=== PATIENT | female | born 1970 | race Caucasian/White ===

== ENCOUNTER 2017-11-13 15:13 | Emergency (ER) | payer OTHER ==
--- NOTE | 2017-11-13 16:12 | RAD ---
Indication: Right foot swelling since Saturday with. Technique: 3 views of the right foot Comparison: None Findings: There is a minimally displaced fracture through the proximal metaphysis of the fifth metatarsal. Soft tissue swelling noted of the ankle. No evidence of arthritic process. Impression: Fracture of the proximal metaphysis of the fifth metatarsal, age indeterminate. Clinically correlate with focal tenderness.
--- NOTE | 2017-11-13 16:26 | PHYS DOC ---
Past History Past Medical History: Anemia, Anxiety, Diabetes, Hypertension, Hypothyroid, Other Past Surgical History: Other Alcohol Use: None Drug Use: None Adult General Chief Complaint Chief Complaint: LOWER EXTREMITY EDEMA HPI HPI Patient is a 47 year old female who presents with complaint of swelling to the right foot and lower extremity. Patient states her symptoms started 3-4 days ago per patient states that she had noticed intermittent pain to her right calf but states that she did not have any associated swelling until earlier this weekend. The patient states that the swelling has fluctuated but became worse the last 1-2 days. Patient denies any associated fever, lymphangitic streaking, or crepitus to the affected lower extremity. The patient has history of type 2 diabetes mellitus and states that it is poorly controlled as her last HbA1c was 9.0. Patient denies any prolonged immobilization or recent travel. The patient also denies any associated chest pain or shortness of breath. Patient is concerned that she may have a blood clot in the affected lower extremity and came to the emergency department for evaluation. Review of Systems Review of Systems Constitutional: Denies fever or chills [] Eyes: Denies change in visual acuity, redness, or eye pain [] HENT: Denies nasal congestion or sore throat [] Respiratory: Denies cough or shortness of breath [] Cardiovascular: Denies chest pain or edema[] GI: Denies abdominal pain, nausea, vomiting, bloody stools or diarrhea [] : Denies dysuria or hematuria [] Musculoskeletal: Right lower extremity pain and swelling[] Integument: Denies rash or skin lesions [] Neurologic: Denies headache, focal weakness or sensory changes [] All other systems were reviewed and found to be within normal limits, except as documented in this note. Allergies Allergies Allergies Coded Allergies Type Severity Reaction Last Updated Verified Penicillins Allergy Unknown 08/12/15 No Sulfa (Sulfonamide Antibiotics) Allergy Unknown 08/12/15 No Physical Exam Physical Exam Constitutional: Alert, afebrile, no acute distress. [] HENT: Normocephalic, atraumatic, bilateral external ears normal, oropharynx moist, no oral exudates, nose normal. [] Eyes: PERRLA, EOMI, conjunctiva normal, no discharge. [] Neck: Normal range of motion, no tenderness, supple, no stridor. [] Cardiovascular:Heart rate regular rhythm, no murmur [] Lungs & Thorax: Bilateral breath sounds clear to auscultation [] Abdomen: Bowel sounds normal, soft, no tenderness, no masses, no pulsatile masses. [] Skin: Warm, dry, no erythema, no rash. [] Back: No tenderness, no CVA tenderness. [] Extremities: Moderate soft tissue swelling involving the right foot and right lower leg, mild erythema present along the medial aspect of the left ankle, no lymphangitic streaking, negative Homans sign, normal range of motion and right ankle and right knee, 2+ pitting edema in the right lower extremity. [] Neurologic: Alert and oriented X 3, normal motor function, normal sensory function, no focal deficits noted. [] Current Patient Data Vital Signs Vital Signs Date Time Temp Pulse Resp B/P (MAP) Pulse Ox O2 Delivery O2 Flow Rate FiO2 11/13/17 15:15 98.0 87 18 100 Room Air Lab Results Laboratory Tests Test 11/13/17 15:41 Glucose (Fingerstick) 553 mg/dL (70-99) *H EKG EKG Not performed[] Radiology/Procedures Radiology/Procedures [address] [address] IMAGING REPORT Signed PATIENT: JELENA JEAN ACCOUNT: [id number] : 1970 LOCATION: ER AGE: 47 SEX: F EXAM STATUS: REG ER ORD. PHYSICIAN: ANNABEL CONNORS MD REASON: right foot swelling PROCEDURE: FOOT RIGHT 3V Indication: Right foot swelling since Saturday with. Technique: 3 views of the right foot Comparison: None Findings: There is a minimally displaced fracture through the proximal metaphysis of the fifth metatarsal. Soft tissue swelling noted of the ankle. No evidence of arthritic process. Impression: Fracture of the proximal metaphysis of the fifth metatarsal, age indeterminate. Clinically correlate with focal tenderness. DICTATED AND SIGNED BY: PROMISE MAYEN DO DATE: 11/13/17 1606 CC: SUKHI FAGAN; ANNABEL CONNORS MD ~ [address] [address] IMAGING REPORT Signed PATIENT: JELENA JEAN ACCOUNT: [id number] : 1970 LOCATION: ER AGE: 47 SEX: F EXAM STATUS: REG ER ORD. PHYSICIAN: ANNABEL CONNORS MD REASON: right lower extremity swelling, rule out DVT PROCEDURE: VENOUS LOWER EXTREMITY RIGHT Indication: Leg swelling Technique: Grayscale, color Doppler and spectral waveform images of the right lower extremity deep veins obtained. Comparison: None Findings: The interrogated lower extremity deep veins are compressible and demonstrate evidence of blood flow with normal respiratory variation and response to augmentation. Impression: No sonographic evidence of acute DVT of the interrogated lower extremity deep veins. DICTATED AND SIGNED BY: PROMISE MAYEN DO DATE: 11/13/17 1627 CC: SUKHI FAGAN; ANNABEL CONNORS MD ~ [] Course & Med Decision Making Course & Med Decision Making Pertinent Labs and Imaging studies reviewed. (See chart for details) The patient's x-ray shows evidence of a right proximal fifth metatarsal fracture , however the patient's exam shows no focal tenderness at this site. This appears to be a chronic fracture as patient does not remember any recent injury that may have caused this. Ultrasound was negative for deep venous thrombosis. Patient's swelling may be due to Charcot joint given the patient's uncontrolled diabetes mellitus versus possible early cellulitis. The patient's vital signs are stable and patient is in no acute distress. The patient's exam does not appear consistent with cellulitis at this time. Patient's blood sugar was addressed by giving 10 units of insulin aspart subcutaneous and patient was advised to continue her oral medication for diabetes mellitus. Also advised patient to check her blood sugar before dinner and before bedtime tonight. I recommended that the patient follow-up with her primary doctor in the next 1-2 days to have her right lower extremity reevaluated for any significant changes. Recommended ice and elevation to help reduce swelling. Recommended return to the emergency department for any worsening symptoms. Patient voiced understanding and was in agreement with treatment plan. Dragon Disclaimer Dragon Disclaimer This electronic medical record was generated, in whole or in part, using a voice recognition dictation system. Departure Departure: Impression: Primary Impression: Edema of right lower extremity Additional Impressions: Fracture of fifth metatarsal bone of right foot Uncontrolled diabetes mellitus Disposition: 01 HOME, SELF-CARE Referrals: SUKHI FAGAN (PCP) Patient Instructions: Edema, Foot Fracture Additional Instructions: Your foot x-ray shows evidence of a fracture to the right fifth metatarsal bone. Your exam shows no tenderness at this site, thus this is likely to be a chronic finding. It is recommended that you follow-up with your orthopedic surgeon for reevaluation. The swelling and your right lower extremity does not appear to be due to active infection though this will need to be watched closely over the next 1-2 days. It is recommended that she follow-up with your primary doctor during that time for reevaluation. These return to the emergency department for any worsening symptoms. Problem Qualifiers Additional Impressions: Fracture of fifth metatarsal bone of right foot Encounter type: initial encounter Fracture type: closed Fracture alignment : displaced Qualified Codes: S92.351A - Displaced fracture of fifth metatarsal bone, right foot, initial encounter for closed fracture Uncontrolled diabetes mellitus Diabetes mellitus type: type 2 Diabetes mellitus complication status: with hyperglycemia Diabetes mellitus intermediate insulin use: without intermediate use Qualified Codes: E11.65 - Type 2 diabetes mellitus with hyperglycemia ANNABEL CONNORS MD Nov 13, 2017 16:25
--- NOTE | 2017-11-13 16:30 | RAD ---
Indication: Leg swelling Technique: Grayscale, color Doppler and spectral waveform images of the right lower extremity deep veins obtained. Comparison: None Findings: The interrogated lower extremity deep veins are compressible and demonstrate evidence of blood flow with normal respiratory variation and response to augmentation. Impression: No sonographic evidence of acute DVT of the interrogated lower extremity deep veins.
[2017-11-13] MEDS ORDERED: INSULIN ASPART 300 UNITS/3 ML INSULN.PEN SQ ONE (17:00)
[2017-11-13 17:10] VITALS: BP 156/80
== END 2017-11-13 17:10 | disposition home or self-care (01) ==
LOC: ER 15:13
DX: S92.351A Displaced fracture of fifth metatarsal bone, right foot, initial encounter for closed fracture (principal); R60.9 Edema, unspecified; E11.65 Type 2 diabetes mellitus with hyperglycemia; E03.9 Hypothyroidism, unspecified; I10 Essential (primary) hypertension; F41.9 Anxiety disorder, unspecified; Z86.2 Personal history of diseases of the blood and blood-forming organs and certain disorders involving the immune mechanism; Z88.0 Allergy status to penicillin; Z88.2 Allergy status to sulfonamides; X58.XXXA Exposure to other specified factors, initial encounter; Y93.89 Activity, other specified; Y99.8 Other external cause status; Y92.89 Other specified places as the place of occurrence of the external cause
CPT/HCPCS: 73630; 82947; 93971; 96372; 99285; J1815

== ENCOUNTER 2022-02-10 21:51 | Observation (INO) | payer OTHER ==
[~2022-02-10] VITALS: Ht 170.2 cm; Wt 106.7 kg
--- NOTE | 2022-02-10 22:02 | PHYS DOC ---
Past History Past Medical History: Anemia, Anxiety, Diabetes, Hypertension, Hypothyroid, Other Past Surgical History: Other Alcohol Use: None Drug Use: None Adult General HPI HPI Patient is a 51-year-old female with a past medical history of diabetes, hypertension and hyperlipidemia who presents to the emergency department with a chief complaint of hypertension at home. States she is to have her blood pressure control, and her doctor changed her to amlodipine, 10 mg about a year ago. States she has noticed that it has been slowly rising over the last year. Denies any recent travel, traumas, illnesses, fevers, neck pain, chest pain, shortness of breath, abdominal pain, nausea, vomiting, diarrhea. Denies any change in vision, syncope, numbness/weakness/tingling. States he is making urine and stool normally for her. States he is able to sit, stand and walk at baseline Review of Systems Review of Systems Review of systems otherwise unremarkable except noted in HPI Allergies Allergies Allergies Coded Allergies Type Severity Reaction Last Updated Verified Penicillins Allergy Unknown 08/12/15 No Sulfa (Sulfonamide Antibiotics) Allergy Unknown 08/12/15 No Physical Exam Physical Exam Constitutional: Well developed, well nourished, no acute distress, non-toxic appearance. [] HENT: Normocephalic, atraumatic, bilateral external ears normal, oropharynx moist, no oral exudates, nose normal. [] Eyes: conjunctiva normal, no discharge. [] Neck: Normal range of motion, no tenderness, supple, no stridor. [] Cardiovascular:Heart rate regular rhythm, no murmur [] Lungs & Thorax: Bilateral breath sounds clear to auscultation [] Abdomen: soft, no tenderness, no masses, no pulsatile masses. [] Skin: Warm, dry, no erythema, no rash. [] Extremities: No tenderness, no cyanosis, no clubbing, ROM intact, no edema. [] Neurologic: Alert and oriented X 3, able to sit, stand and walk without issue, no focal deficits noted. [] Psychologic: Affect normal, judgement normal, mood normal. [] EKG EKG [] Radiology/Procedures Radiology/Procedures [] Heart Score C/O Chest Pain: No Risk Factors: Risk Factors: DM, Current or recent (<one month) smoker, HTN, HLP, family h istory of CAD, obesity. Risk Scores: Risk Factors: DM, Current or recent (<one month) smoker, HTN, HLP, family history of CAD, obesity. Course & Med Decision Making Course & Med Decision Making Patient is a 51-year-old female presents emergency department with a chief complaint of hypertension Vital signs notable for hypertension. Physical exam noted above. EKG with a rate of 77, QRS of 90, QTc of 466, no STEMI. Mild questionable ST depressions in 2, 3. mildly elevated high-sensitivity troponin. chest x-ray nonconcerning. Laboratory analysis with mildly elevated troponin and SHANNAN with creatinine of 3.4. Given dose of labetalol. Started on mild fluid hydration. Started on as needed labetalol. Given Lipitor. Discussed all findings with Dr. Sadie Hawthorne the retail salesperson who felt safe having patient admitted here to [facility] and he would come in the morning to round on her. Discussed patient with hospitalist who also agreed to plan of admission Discussed all findings with family and recommended admission to [facility] for continued evaluation and treatment and cardiology consult. Family grateful, verbalized understanding and agreed with plan of admission. Dragon Disclaimer Dragon Disclaimer This electronic medical record was generated, in whole or in part, using a voice recognition dictation system. Departure Departure: Impression: Primary Impression: Hypertensive emergency Additional Impressions: Elevated troponin Acute kidney injury Disposition: ADMITTED INPATIENT Admitting Physician: Pavan Hung Condition: STABLE Referrals: SUKHI FAGAN NP (PCP) Problem Qualifiers KELLY DENNEY MD Feb 10, 2022 22:02
--- NOTE | 2022-02-10 22:20 | EKG ---
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
[2022-02-10] MEDS ORDERED: LABETALOL 20 MG/4 ML DISP.SYRIN. IVP ONE (22:30)
[2022-02-10 22:40] LABS: CALCIUM 8.1 mg/dL (8.5-10.1); CREATININE 3.4 mg/dL (0.6-1.0); GFR 14.1; POTASSIUM 3.5 mmol/L (3.5-5.1)
[2022-02-10 23:10] LABS: BASO # 0.1 x10^3/uL (0.0-0.2); BASO % 1 % (0-3); EOS # 0.5 x10^3/uL (0.0-0.7); EOS % 6 % (0-3); HEMATOCRIT 26.1 % (36.0-47.0); HEMOGLOBIN 8.3 g/dL (12.0-15.5); LYMPH # 1.6 x10^3/uL (1.0-4.8); LYMPH % 18 % (24-48); MEAN CORPUSCULAR HEMOGLOBIN 26 pg (25-35); MEAN CORPUSCULAR HGB CONC 32 g/dL (31-37); MEAN CORPUSCULAR VOLUME 82 fL (79-100); MONO # 0.6 x10^3/uL (0.0-1.1); MONO % 6 % (0-9); NEUT # 6.1 x10^3uL (1.8-7.7); NEUT % 69 % (31-73); PLATELET COUNT 303 x10^3/uL (140-400); RED BLOOD COUNT 3.17 x10^6/uL (3.50-5.40); RED CELL DISTRIBUTION WIDTH 15.2 % (11.5-14.5); WHITE BLOOD COUNT 8.9 x10^3/uL (4.0-11.0)
--- NOTE | 2022-02-10 23:13 | RAD ---
Exam: Chest one view INDICATION: Chest pain TECHNIQUE: Frontal view of the chest Comparisons: None FINDINGS: Heart is mildly enlarged. Pulmonary vessels are within normal limits. The lung and pleural spaces are clear. IMPRESSION: No acute pulmonary process. Electronically signed by: Fidel Gil MD (02/10/2022 11:10 PM) JOSE RAFAEL
[2022-02-10] MEDS ORDERED: INSU100I13 SQ (23:14)
[2022-02-10] MEDS ORDERED: LIPITOR80 MG PO (23:14)
[2022-02-10] MEDS ORDERED: BUPR300T3 PO (23:14)
[2022-02-10] MEDS ORDERED: AMLO-187 PO (23:14)
[2022-02-10] MEDS ORDERED: HYDR12.58 PO (23:14)
[2022-02-10] MEDS ORDERED: EMPA10TA3 PO (23:14)
[2022-02-10] MEDS ORDERED: LEVO150T PO (23:14)
[2022-02-10] MEDS ORDERED: IV RINGERS SOLUTION,LACTATED 1,000 ML IV ONE (23:30)
[2022-02-10] MEDS ORDERED: LABETALOL 20 MG/4 ML DISP.SYRIN. IVP PRN (23:30)
[2022-02-10] MEDS ORDERED: ASPIRIN CHEWABLE 81 MG TABLET. PO ONE (23:30)
[2022-02-10 23:50] VITALS: BP 164/78
--- NOTE | 2022-02-10 23:50 | NUR ---
Pt admitted from ER to [facility] room 113 via [place], accompanied by EMS and nursing staff. Pt self ambulated from gurney to bed independently with stand by assist. Pt wears left ortho boot r/t hx left foot fracture with rejection of implanted hardware. Admission assessment completed. Pt had recent change in BP medications r/t SHANNAN, new Rx for Coreg but has not picked up yet. Pt is A&Ox4, pleasant and cooperative. Health history and home medications reviewed with pt. Pt lives at home with family. 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 POC reviewed with pt and understanding verbalized. Pt was given written information regarding hospital policies, unit procedures and contact persons. Valuables were checked and left at bedside. Dr Hung called for admitted orders and home medications.
[2022-02-11 00:11] LABS: BACTERIA,URINE FEW /HPF (0-FEW); CLARITY,URINE CLEAR; COLOR,URINE YELLOW; GLUCOSE,URINE 500 mg/dL (NEG); NITRITE,URINE NEG (NEG); UROBILINOGEN,URINE 0.2 mg/dL (0.2 mg/dL)
[2022-02-11 00:12] LABS: SQUAMOUS EPITHELIAL CELL,UR MOD /LPF
[2022-02-11] MEDS ORDERED: CARV6.253 PO (01:16)
[2022-02-11] MEDS ORDERED: HYDR25TA10 PO (01:16)
[2022-02-11] MEDS ORDERED: INSULIN GLARGINE SYRINGE. SQ SCH (02:00)
--- NOTE | 2022-02-11 04:20 | NUR ---
Interventions and esthetic[facility] and manager [facility] spa charted by SN Tricia were under the direct supervision of this RN.
[2022-02-11 05:00] VITALS: BP 159/84
--- NOTE | 2022-02-11 05:22 | EKG ---
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
[2022-02-11] MEDS ORDERED: LEVOTHYROXINE 150 MCG TABLET PO SCH (06:00)
[2022-02-11 07:40] LABS: BASO # 0.1 x10^3/uL (0.0-0.2); BASO % 1 % (0-3); EOS # 0.3 x10^3/uL (0.0-0.7); EOS % 4 % (0-3); HEMATOCRIT 24.2 % (36.0-47.0); HEMOGLOBIN 7.8 g/dL (12.0-15.5); LYMPH % 14 % (24-48); MEAN CORPUSCULAR HEMOGLOBIN 27 pg (25-35); MEAN CORPUSCULAR HGB CONC 32 g/dL (31-37); MEAN CORPUSCULAR VOLUME 82 fL (79-100); MONO # 0.4 x10^3/uL (0.0-1.1); MONO % 5 % (0-9); NEUT # 5.5 x10^3uL (1.8-7.7); NEUT % 76 % (31-73); PLATELET COUNT 281 x10^3/uL (140-400); RED BLOOD COUNT 2.94 x10^6/uL (3.50-5.40); RED CELL DISTRIBUTION WIDTH 15.1 % (11.5-14.5); WHITE BLOOD COUNT 7.2 x10^3/uL (4.0-11.0)
[2022-02-11 07:59] LABS: CALCIUM 8.4 mg/dL (8.5-10.1); CREATININE 3.3 mg/dL (0.6-1.0); GFR 14.6; POTASSIUM 3.6 mmol/L (3.5-5.1)
[2022-02-11] MEDS ORDERED: CARVEDILOL 6.25 MG TABLET PO SCH (08:00)
[2022-02-11] MEDS ORDERED: ATORVASTATIN CALCIUM 20 MG TABLET PO SCH ×2 (09:00)
[2022-02-11] MEDS ORDERED: EMPAGLIFLOZIN 10 MG TABLET. PO SCH (09:00)
[2022-02-11] MEDS ORDERED: hydroCHLOROthiazide 25 MG TABLET. PO SCH (09:00)
[2022-02-11] MEDS ORDERED: amLODIPine BESYLATE 10 MG TABLET PO SCH (09:00)
[2022-02-11] MEDS ORDERED: buPROPion XL 300 MG TAB.ER.24H. PO SCH (09:00)
[2022-02-11 11:00] VITALS: BP 166/82
--- NOTE | 2022-02-11 13:26 | NUR ---
Nursing note PT in bed, family at bed side. Assessments done, medications administered per doctors orders. PT verbalized she will like to go home because she has an appoinment the next day. PT was told by RN when she is seen by the doctor he will decide what to do. Bed low, call light within reach. PT verbalized no other needs.
--- NOTE | 2022-02-11 14:04 | PDOC2 ---
CONSULT DOS: DATE: 02/11/22 TIME: 14:04 Reason for Consult: Elevated troponin level Referring Physician: Dr. Hung Chief Complaint Uncontrolled blood pressure Source: Chart review, Patient Problem List Problems Medical Problems: (1) Acute kidney injury Status: Acute (2) Elevated troponin Status: Acute (3) Hypertension Status: Acute (4) Hypertensive emergency Status: Acute History of Present Illness 51-year-old female without any previous cardiac history apparently had medication changes recently secondary to renal insufficiency. Her blood pressure started going up after that and when she contacted PCP, she was prescribed carvedilol but she could not get that till Saturday. Since her blood pressure when checked at home was significantly elevated, she presented to ED. She had mild headache but denied any blurred vision, chest pain, dyspnea or syncope. Her troponin level was slightly elevated prompting cardiology consultation. Past Medical History Hypertension Hypothyroidism Diabetes mellitus type 2 Anxiety Anemia Past Surgical History: No pertinent history Family History Negative for premature coronary artery disease Social History Patient denied any smoking, alcohol or drug use. 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 [employer] Current Medications Current Medications Labetalol HCl (Normodyne) 20 mg 1X ONCE IVP Last administered on 02/10/22at 22:24; Start 02/10/22 at 22:30; Stop 02/10/22 at 22:31; Status DC Lactated Ringer's 1,000 ml @ 1,000 mls/hr 1X ONCE IV Last administered on 02/10/22at 23:08; Start 02/10/22 at 23:30; Stop 02/11/22 at 00:29; Status DC Aspirin (Aspirin Chewable) 324 mg 1X ONCE PO Last administered on 02/10/22at 23:07; Start 02/10/22 at 23:30; Stop 02/10/22 at 23:31; Status DC Labetalol HCl (Normodyne) 20 mg PRN Q2HRS PRN IVP ELEVATED BP, SEE COMMENTS; Start 02/10/22 at 23:30 Atorvastatin Calcium (Lipitor) 20 mg DAILY PO ; Start 02/11/22 at 09:00; Status Cancel Amlodipine Besylate (Norvasc) 10 mg DAILY PO Last administered on 02/11/22at 08:45; Start 02/11/22 at 09:00 Bupropion HCl (Wellbutrin Xl) 300 mg DAILY PO Last administered on 4/10/22at 08:44; Start 02/11/22 at 09:00 Carvedilol (Coreg) 6.25 mg BIDWMEALS PO Last administered on 02/11/22 08:45; Start 02/11/22 at 08:00 Empaglifozin (Jardiance) 10 mg DAILY PO Last administered on 02/11/22 08:46; Start 02/11/22 at 09:00 Hydrochlorothiazide (Hydrodiuril) 25 mg DAILY PO Last administered on 02/11/22 08:47; Start 02/11/22 at 09:00 Levothyroxine Sodium (Synthroid) 150 mcg DAILY06 PO Last administered on 02/11/22 05:07; Start 02/11/22 at 06:00 Atorvastatin Calcium (Lipitor) 80 mg DAILY PO Last administered on 02/11/22 08:45; Start 02/11/22 at 09:00 Insulin Glargine (Lantus Syringe) 48 unit QHS SQ Last administered on 02/11/22at 01:39; Start 02/11/22 at 02:00 Active Scripts Active Reported Hydrochlorothiazide 25 Mg Tablet 25 Mg PO DAILY LAST DOSE GIVEN: DATE: TIME: NEXT DOSE DUE: DATE: TIME: Carvedilol 6.25 Mg Tablet 6.25 Mg PO BID LAST DOSE GIVEN: DATE: TIME: NEXT DOSE DUE: DATE: TIME: Lantus Solostar (Insulin Glargine,Hum.rec.anlog) 100 Unit/1 Ml Insuln.pen 48 Unit SQ QHS Wellbutrin Xl (Bupropion Hcl) 300 Mg Tab.er.24h 1 Tab PO DAILY Lipitor (Atorvastatin Calcium) 80 Mg Tablet 1 Tab PO DAILY Amlodipine Besylate 10 Mg Tablet 1 Tab PO DAILY Jardiance (Empaglifozin) 10 Mg Tablet 10 Mg PO DAILY Synthroid (Levothyroxine Sodium) 150 Mcg Tablet 1 Tab PO DAILY Allergies: Coded Allergies: Penicillins (Unverified Allergy, Unknown, 08/12/15) Sulfa (Sulfonamide Antibiotics) (Unverified Allergy, Unknown, 08/12/15) PSYCHOLOGICAL ROS: No: Hallucinations Eyes: No: Blurry vision, Loss of vision HEENT: No: Heacaches, Epistaxis Respiratory: No: Cough, Hemoptysis, Shortness of breath Cardiovascular: No: Chest Pain Gastrointestinal: No: Vomiting, Diarrhea Genitourinary: No: [place] Neurological: No: Seizures General: Alert, Oriented X3 HEENT: Atraumatic Lungs: Clear to auscultation Heart: Regular rate, Other (ESM) Abdomen: Soft, No tenderness Extremities: No edema Psych/Mental Status: Mood NL VITALS Vital Signs Date Time Temp Pulse Resp B/P (MAP) Pulse Ox O2 Delivery O2 Flow Rate FiO2 02/11/22 11:00 98.6 69 18 166/82 (110) 94 Room Air Labs Laboratory Tests Test 02/10/22 22:10 02/10/22 22:49 02/10/22 23:25 02/10/22 23:39 Sodium Level 141 mmol/L (136-145) Potassium Level 3.5 mmol/L (3.5-5.1) Chloride Level 105 mmol/L (98-107) Carbon Dioxide Level 23 mmol/L (21-32) Anion Gap 13 (6-14) Blood Urea Nitrogen 50 mg/dL (7-20) Creatinine 3.4 mg/dL (0.6-1.0) Estimated GFR (Cockcroft-Gault) 14.1 Glucose Level 273 mg/dL (70-99) Calcium Level 8.1 mg/dL (8.5-10.1) Troponin I High Sensitivity 114 ng/L (4-50) White Blood Count 8.9 x10^3/uL (4.0-11.0) Red Blood Count 3.17 x10^6/uL (3.50-5.40) Hemoglobin 8.3 g/dL (12.0-15.5) Hematocrit 26.1 % (36.0-47.0) Mean Corpuscular Volume 82 fL (79-100) Mean Corpuscular Hemoglobin 26 pg (25-35) Mean Corpuscular Hemoglobin Concent 32 g/dL (31-37) Red Cell Distribution Width 15.2 % (11.5-14.5) Platelet Count 303 x10^3/uL (140-400) Neutrophils (%) (Auto) 69 % (31-73) Lymphocytes (%) (Auto) 18 % (24-48) Monocytes (%) (Auto) 6 % (0-9) Eosinophils (%) (Auto) 6 % (0-3) Basophils (%) (Auto) 1 % (0-3) Neutrophils # (Auto) 6.1 x10^3uL (1.8-7.7) Lymphocytes # (Auto) 1.6 x10^3/uL (1.0-4.8) Monocytes # (Auto) 0.6 x10^3/uL (0.0-1.1) Eosinophils # (Auto) 0.5 x10^3/uL (0.0-0.7) Basophils # (Auto) 0.1 x10^3/uL (0.0-0.2) Prothrombin Time 10.4 SEC (9.4-11.4) Prothromb Time International Ratio 1.0 (0.9-1.1) Activated Partial Thromboplast Time 28 SEC (23-33) D-Dimer (Hannah) 7.96 mg/L (0.00-0.50) Urine Collection Type Unknown Urine Color Yellow Urine Clarity Clear Urine pH 6.0 Urine Specific Lutts 1.025 Urine Protein >100 mg/dl (NEG-TRACE) Urine Glucose (UA) 500 mg/dL (NEG) Urine Ketones (Stick) Neg mg/dL (NEG) Urine Blood Small (NEG) Urine Nitrite Neg (NEG) Urine Bilirubin Neg (NEG) Urine Urobilinogen Dipstick 0.2 mg/dL (0.2 mg/dL) Urine Leukocyte Esterase Neg (NEG) Urine RBC 1-2 /HPF (0-2) Urine WBC 5-10 /HPF (0-4) Urine Squamous Epithelial Cells Mod /LPF Urine Bacteria Few /HPF (0-FEW) SARS-CoV-2 Antigen (Rapid) Negative (NEGATIVE) Test 02/10/22 23:40 02/11/22 01:09 02/11/22 06:50 02/11/22 07:51 Magnesium Level 2.1 mg/dL (1.8-2.4) Troponin I High Sensitivity 105 ng/L (4-50) 115 ng/L (4-50) White Blood Count 7.2 x10^3/uL (4.0-11.0) Red Blood Count 2.94 x10^6/uL (3.50-5.40) Hemoglobin 7.8 g/dL (12.0-15.5) Hematocrit 24.2 % (36.0-47.0) Mean Corpuscular Volume 82 fL (79-100) Mean Corpuscular Hemoglobin 27 pg (25-35) Mean Corpuscular Hemoglobin Concent 32 g/dL (31-37) Red Cell Distribution Width 15.1 % (11.5-14.5) Platelet Count 281 x10^3/uL (140-400) Neutrophils (%) (Auto) 76 % (31-73) Lymphocytes (%) (Auto) 14 % (24-48) Monocytes (%) (Auto) 5 % (0-9) Eosinophils (%) (Auto) 4 % (0-3) Basophils (%) (Auto) 1 % (0-3) Neutrophils # (Auto) 5.5 x10^3uL (1.8-7.7) Lymphocytes # (Auto) 1.0 x10^3/uL (1.0-4.8) Monocytes # (Auto) 0.4 x10^3/uL (0.0-1.1) Eosinophils # (Auto) 0.3 x10^3/uL (0.0-0.7) Basophils # (Auto) 0.1 x10^3/uL (0.0-0.2) Sodium Level 144 mmol/L (136-145) Potassium Level 3.6 mmol/L (3.5-5.1) Chloride Level 110 mmol/L (98-107) Carbon Dioxide Level 24 mmol/L (21-32) Anion Gap 10 (6-14) Blood Urea Nitrogen 45 mg/dL (7-20) Creatinine 3.3 mg/dL (0.6-1.0) Estimated GFR (Cockcroft-Gault) 14.6 Glucose Level 121 mg/dL (70-99) Calcium Level 8.4 mg/dL (8.5-10.1) Glucose (Fingerstick) 108 mg/dL (70-99) Test 02/11/22 11:54 Glucose (Fingerstick) 120 mg/dL (70-99) Assessment/Plan 1. Non-STEMI most likely type II/demand ischemia secondary to uncontrolled hypertension. EKG without acute changes. Plan for 2D echo to assess LV systolic function and Lexiscan nuclear stress test to rule out ischemia -could be done as an outpatient. 2. Accelerated hypertension: Increase carvedilol dose for better control and continue amlodipine 3. Hyperlipidemia: Continue statin therapy 4. DM2: Treat per IM 5. Hypothyroidism: Continue levothyroxine Thank you for your consultation TAYLOR OWENS MD Feb 11, 2022 14:04
[2022-02-11 15:00] VITALS: BP 157/77
[2022-02-11 16:19] VITALS: BP 157/77
[2022-02-11] MEDS ORDERED: CARVEDILOL 12.5 MG TABLET PO SCH (17:00)
--- NOTE | 2022-02-11 17:06 | NUR ---
Nursing note PT was discharged from the hospital to go home and continue with care by a cardilogist. Discharge assessments done and paper work given to PT. Education done on the risk of elevated blood prressure and troponin. PT verbalized understanding. PT was picked up from the hospital by family.
--- NOTE | 2022-02-12 05:42 | HP ---
DATE OF SERVICE: 02/11/2022 ADMIT DATE: 02/10/2022 HISTORY OF PRESENT ILLNESS: The patient is a 51-year-old female patient who presented to the Emergency Department with chief complaint of hypertension at home. She stated that her blood pressure has been extremely high as her doctor changed her amlodipine 10 mg about a year ago and she stated that she was on Micardis and both her collar stay fuser tender at [facility] apparently discontinued that and she is now on amlodipine, hydrochlorothiazide, but her blood pressure continues to be extremely high and has been rising slowly over the last year. Denied any recent travel, trauma, illness, fever, neck pain, chest pain. According to her, she has been diabetic for the last 24 years and apparently her collar stay fuser tender did renal ultrasound and renal artery duplex and her kidney size and renal arteries are normal according to her. Obviously, I do not have any access to all this information. She seemed to have also bilateral cataract that were removed; however, according to her, she does not have any diabetic retinopathy and she has not had any kidney biopsy to investigate the reason for worsening kidney function. In any case, the patient was evaluated in the Emergency Room and has had lab work as well as imaging studies. Her EKG showed that she was in sinus rhythm at heart rate of 77, ____ of 90 milliseconds, corrected QT interval 466 with no STEMI. Mild questionable ST depression in lead II and III. She does have a mildly elevated high sensitivity troponin. She does have normochromic normocytic anemia with normal white cell count and platelets. Her D-dimer was extremely high at 7.96. She was admitted to control the blood pressure and also do two more sets of cardiac enzymes, check her fasting lipid profile and to consult the inside wireman. PAST MEDICAL HISTORY: Significant for hypertension, type 2 diabetes mellitus for 24-year duration, chronic kidney disease, hypothyroidism. PAST SURGICAL HISTORY: Significant for bilateral cataract extraction. She does have 7 surgeries on her left ankle joint and underwent total thyroidectomy. ALLERGIES: SHE IS ALLERGIC TO PENICILLIN AND SULFA DRUGS. MEDICATIONS: She is currently on the following medications: She is on atorvastatin calcium 80 mg once a day at bedtime, carvedilol 6.25 mg twice a day, amlodipine besylate 10 mg once a day, hydrochlorothiazide 25 mg once a day, Wellbutrin 300 mg extended release once a day, Lantus insulin 48 units at bedtime, and Jardiance 10 mg daily as well as levothyroxine 150 mcg once a day. FAMILY HISTORY: She has no brothers and sisters. Her father is still alive, but she does not know anything about him. Her mother at age of 57 because of pancreatic cancer. SOCIAL HISTORY: She is , has a son and a daughter. She does not smoke. Does not drink alcohol or use recreational drugs. 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 REVIEW OF SYSTEMS: The patient denied any blurring of vision. She does have bilateral cataract extraction, but denied any glaucoma or macular degeneration. Denied any diabetic retinopathy. Denied any earache, tinnitus or sensorineural deafness. Denied any nosebleed, stuffy nose or postnasal drip. Denied any sore throat, sore tongue, toothache, hoarseness of voice or difficulty swallowing. Denied any nausea, vomiting, diarrhea or constipation. Denied any hematemesis, melena or hematochezia. Denied any dysuria, frequency or hematuria. Denied any chest pain, shortness of breath, orthopnea or paroxysmal nocturnal dyspnea. Denied any cough, phlegm or hemoptysis. PHYSICAL EXAMINATION: GENERAL: On arrival to the Emergency Room, the patient looked well and was clearly in no apparent respiratory distress. She was pale, but no jaundiced or cyanosed. No lymphadenopathy, no thyromegaly, no jugular venous distention. No limb edema. VITAL SIGNS: Her heart rate was 84, blood pressure was 195/79, temperature was 98.1, respiratory rate was 18 and oxygen saturation was 99%. HEAD, EYES, EARS, NOSE, AND THROAT: Normocephalic, atraumatic. NECK: Supple. HEART: Normal first and second heart sounds. No gallop or murmur. CHEST: Clear to auscultation, no crepitation or rhonchi. ABDOMEN: Distended, soft, nontender. NEUROLOGIC: She was grossly intact. LABORATORY WORK: On admission showed a white cell count of 8.9, hemoglobin 8.3, hematocrit 26, MCV 82 and platelet count of 303,000 with normal manual differential. Her chemistry showed a serum sodium 141, potassium 3.5, chloride 105, bicarbonate 23, anion gap of 13, BUN 50, creatinine 3.4. Estimated GFR was 14 mL per minute. Her glucose was 273, calcium was 8.1. Her troponin I high sensitivity was 114. Her prothrombin time was 10.4, INR of 1, APTT was 28 and D-dimer was 7.96. Her urinalysis was essentially negative and coronavirus by rapid antigen testing was negative. Her heart is mildly enlarged. Pulmonary vessels are within normal limits. Lungs and pleural spaces are clear and her EKG showed no evidence of ST segment elevation. ASSESSMENT AND PLAN: The patient was admitted to continue with her medications, to do 2 more sets of cardiac enzyme and to consult the inside wireman to decide on further management. LAUREL/NICHOLAS DR: Miriam TID: [id number]
== END 2022-02-11 17:10 | disposition home or self-care (01) ==
LOC: ER 21:51 → 1 SOUTH 23:32 → INTOOBSV 23:32
PROVIDERS: ADMIT Internal Medicine; ATTEND Internal Medicine
DX: I21.4 Non-ST elevation (NSTEMI) myocardial infarction (principal); Z20.822 Contact with and (suspected) exposure to COVID-19; N17.9 Acute kidney failure, unspecified; I16.0 Hypertensive urgency; I12.9 Hypertensive chronic kidney disease with stage 1 through stage 4 chronic kidney disease, or unspecified chronic kidney disease; N18.9 Chronic kidney disease, unspecified; R77.8 Other specified abnormalities of plasma proteins; E11.36 Type 2 diabetes mellitus with diabetic cataract; E03.9 Hypothyroidism, unspecified; F41.9 Anxiety disorder, unspecified; D64.9 Anemia, unspecified; E78.5 Hyperlipidemia, unspecified; Z79.899 Other long term (current) drug therapy; Z98.890 Other specified postprocedural states; Z98.41 Cataract extraction status, right eye; Z98.42 Cataract extraction status, left eye; Z79.82 Long term (current) use of aspirin; Z79.4 Long term (current) use of insulin
CPT/HCPCS: 36415; 71045; 80048; 81001; 82947; 83735; 84484; 85025; 85379; 85610; 85730; 87086; 87147; 87426; 93005; 96361; 96372; 96374; 99285; G0378; J1815; J3490; J7120; U0003; G0379